=== PATIENT | female | born 1970 | race Two or more races ===

== ENCOUNTER 2024-09-01 13:39 | Emergency (ER) | payer OTHER ==
[~2024-09-01] VITALS: Ht 157.5 cm; Wt 92.1 kg
[2024-09-01] MEDS ORDERED: COZAAR100 MG PO (14:10)
[2024-09-01] MEDS ORDERED: OZEMPIC2 MG/0.75 SQ (14:10)
[2024-09-01] MEDS ORDERED: VENLAFAXINE HCL75 M2 PO (14:10)
[2024-09-01] MEDS ORDERED: CLONAZEPAM1 M1 PO (14:11)
[2024-09-01] MEDS ORDERED: HORIZANT600 MG (14:11)
[2024-09-01] MEDS ORDERED: TOPIRAMATE ER100 M1 PO (14:12)
[2024-09-01] MEDS ORDERED: CEPHALEXIN500 MG PO (17:11)
[2024-09-01] MEDS ORDERED: LIDOCAINE HCL 1% 10ML VIAL ONE (17:23)
[2024-09-01] MEDS ORDERED: CEFTRIAXONE SODIUM 1,000 MG VIAL ONE (17:23)
[2024-09-01] MEDS ORDERED: CEFTRIAXONE SODIUM 1,000 MG VIAL IM ONE (17:30)
== END 2024-09-01 17:34 | disposition home or self-care (01) ==
LOC: ER 13:40
DX: L03.031 Cellulitis of right toe (principal); G89.11 Acute pain due to trauma; M79.672 Pain in left foot; I10 Essential (primary) hypertension; E11.9 Type 2 diabetes mellitus without complications
CPT/HCPCS: 96372; 99282; J0696